=== PATIENT | female | born 1955 | race Caucasian/White ===

== ENCOUNTER 2020-10-04 16:55 | Emergency (ER) | payer SELFPAY ==
[~2020-10-04] VITALS: Ht 162.6 cm; Wt 42.0 kg
[2020-10-04 16:57] VITALS: BP 147/69
--- NOTE | 2020-10-04 20:35 | NUR ---
embedded nurse: Called for patient. Pt not in lobby at this time for first attempt.
--- NOTE | 2020-10-04 20:50 | NUR ---
Drier Attendant: Called for patient. Pt not in lobby for 2nd attempt.
--- NOTE | 2020-10-04 21:12 | NUR ---
front desk auxiliary: Called for patient. Pt not in lobby for 3rd attempt.
== END 2020-10-04 21:15 | disposition home or self-care (01) ==
LOC: ED 17:00
DX: R06.02 Shortness of breath (principal); Z53.21 Procedure and treatment not carried out due to patient leaving prior to being seen by health care provider
CPT/HCPCS: 93005